=== PATIENT | female | born 1965 | race Caucasian/White ===

== ENCOUNTER → 2019-01-09 | Outpatient (CLI) | payer MEDICARE, MEDICAID ==
--- NOTE | 2019-01-10 06:20 | PFTRPT ---
Height: 62.00 Inches Weight: 240.00 Lbs BSA: 2.07 Diagnosis: R06.09 DATE OF PROCEDURE: 01/09/2019 ORDERED BY: Dr. Calderon Spirometry: Study of excellent technical quality. Forced vital capacity normal. FEV1 in proportion. Obstructive index is, therefore, normal. Flow Volume Loop: Expiratory limb of the flow volume loop is normal. Lung Volumes: Total lung capacity mildly elevated. Residual volume does suggest some degree of air trapping. Diffusing Capacity: Diffusing capacity is normal. Hemoglobin: No hemoglobin available for correction. Airway Mechanics: Airway resistance and conductance are normal. IMPRESSION: Cannot rule out a degree of air trapping. Please correlate clinically. MTDD
== END ==
LOC: M CARPUL 10:24
PROVIDERS: ATTEND Internal Medicine Cardiovascular Disease
DX: R06.09 Other forms of dyspnea (principal)

== ENCOUNTER → 2019-02-22 | Outpatient (CLI) | payer MEDICARE, MEDICAID ==
--- NOTE | 2019-03-01 09:04 | SLEEPCENT ---
DATE OF PROCEDURE: 02/22/2019 ORDERED BY: EVERTON Khalil Nocturnal polysomnography was performed for evaluation of sleep physiology in this patient with a history of excessive somnolence, snoring and nonrestorative sleep who has comorbidities of restless leg syndrome, fibromyalgia and a history of bradycardia. 7 hours and 41 minutes of data were reviewed. There were 387 minutes of sleep identified. Sleep latency was mildly prolonged at 18 minutes. Rapid eye movement (REM) latency was normal at 78 minutes. Sleep architecture was good with 4 REM cycles. Overall sleep efficiency was 86.6%. The electrocardiogram showed sinus rhythm with an average heart rate of 40 beats per minute. Rate ranged 40-70. There were some premature ventricular contractions (PVCs) . Electroencephalogram (EEG) showed normal waveforms for awake and sleep. There were 55 respiratory events identified of 10 seconds in duration or greater for an apnea-hypopnea index of 8.5. The events were obstructive, not exclusive to sleep stage nor body posture. Respiratory related arousal index was 0.6 and oxygen desaturations were seen into the upper 80s. There was some limb activity noted but arousals from limb events were few. Snoring was noted over the entire test. IMPRESSION: Obstructive sleep apnea syndrome (G47.33). Apnea-hypopnea index 8.5. RECOMMENDATIONS: The patient should be encouraged to return to the sleep disorder center for pressure therapy. In the interim, alcohol and sedative avoidance should be practiced and caution exercised during operation of motor vehicles.
== END ==
LOC: M SLEEP 19:22
PROVIDERS: ATTEND Nurse Practitioner Family
DX: G47.33 Obstructive sleep apnea (adult) (pediatric) (principal)

== ENCOUNTER → 2019-03-30 | Outpatient (CLI) | payer MEDICARE, MEDICAID ==
--- NOTE | 2019-04-05 08:04 | SLEEPCENT ---
DATE OF STUDY: 03/30/2019 ORDERED BY: Pilar Levi Nocturnal polysomnography was performed for the titration of pressure therapy in this patient with obstructive sleep apnea syndrome and apnea-hypopnea index of 8.5. For testing, a [employer] Simplus full face mask of small size was used and 4 cm of water pressure were applied to the circuit and the lights were extinguished. 7 hours and 55 minutes of data were reviewed. There were 419.5 minutes of sleep identified. Sleep latency was short at 6 minutes. Rapid eye movement (REM) latency was normal at 67.5 minutes. Sleep architecture was good with evidence of REM rebound. Overall sleep efficiency 89.9%. The patient's electrocardiogram showed a sinus rhythm with an average heart rate of 45 beats per minute. Rate ranged 40-60 beats per minute. Electroencephalogram (EEG) showed normal waveforms for awake and sleep. Respiratory events were fully palliated with C-PAP at a pressure of +6 and remaining measures of sleep physiology were normal. IMPRESSION: Obstructive sleep apnea syndrome (G47.33). RECOMMENDATION: Nightly use of pressure therapy at 6 cm of water.
== END ==
LOC: M SLEEP 19:28
PROVIDERS: ATTEND Nurse Practitioner Family
DX: G47.33 Obstructive sleep apnea (adult) (pediatric) (principal)

== ENCOUNTER → 2019-09-05 | Outpatient (CLI) | payer MEDICARE, MEDICAID ==
[~2019-09-05] MED LIST: METHACHOLINE KIT (J7674) INH ONE
--- NOTE | 2019-09-05 13:50 | PFTRPT ---
Site: [facility], [address] [place], [address] ID: [id number] Name: JOSE JOY Visit Date: 09/05/2019 Second ID: [id number] Referring Doctor: MARION CHAN Reviewing Doctor: Mario Small MD Cost Control Specialist: Huyen QIU RRT Age: 54 : 1965 Sex: Female Race: Height: 62.00 Inches Weight: 226.00 Lbs BSA: 2.01 Order IDs: [id number] Requested Test(s): <RESP-PFT.METH CHAL> Diagnosis: R05 of albuterol for postbronchodilator. Review Status: Not Reviewed Pre-Bronch Post-Bronch Pred Actual %Pred Actual %Chng SPIROMETRY FVC (L) 3.20 3.55 110 3.42 -3 FEV1 (L) 2.51 2.99 119 2.84 -4 FEV1/FVC (%) 79 84 106 83 -1 FEF 25% (L/sec) 4.90 5.01 102 4.95 -1 FEF 50% (L/sec) 3.79 4.17 109 3.91 -6 FEF 75% (L/sec) 1.34 1.48 110 1.10 -25 FEF 25-75% (L/sec) 2.47 3.30 133 2.85 -13 FEF Max (L/sec) 6.26 5.20 83 5.02 -3 FIVC (L) 3.74 3.48 -7 FIF 50% (L/sec) 3.84 3.91 101 4.46 14 FIF Max (L/sec) 4.04 4.64 14 Expiratory Time (sec) 6.80 6.45 -5 Back Extrap Vol (L) 0.08 0.09 7 Time To FEFmax (sec) 0.094 0.150 59
== END ==
LOC: M CARPUL 12:52
PROVIDERS: ATTEND Nurse Practitioner Family
DX: R05 Cough (principal)
CPT/HCPCS: 94070; 95070; J7674

== ENCOUNTER → 2023-05-28 | Outpatient (CLI) | payer MEDICARE, MEDICAID | LOC: M RAD 09:07 | PROVIDERS: ATTEND Ophthalmology | DX: H53.9 Unspecified visual disturbance (principal) ==

== ENCOUNTER → 2024-03-31 | Outpatient (CLI) | payer MEDICARE, MEDICAID | LOC: M RAD 06:36 | PROVIDERS: ATTEND Internal Medicine Cardiovascular Disease | DX: I35.0 Nonrheumatic aortic (valve) stenosis (principal); R00.2 Palpitations; G47.33 Obstructive sleep apnea (adult) (pediatric); R06.09 Other forms of dyspnea; I49.5 Sick sinus syndrome; R07.9 Chest pain, unspecified ==

== ENCOUNTER → 2025-05-04 | Outpatient (CLI) | payer MEDICARE, MEDICAID | LOC: M PLAIMG 09:10 | PROVIDERS: ATTEND Physician Assistant | DX: I71.20 Thoracic aortic aneurysm, without rupture, unspecified (principal); N20.0 Calculus of kidney ==